=== PATIENT | female | born 1940 | race Caucasian/White ===

== ENCOUNTER 2019-01-25 12:12 | Observation (INO) ==
--- NOTE | 2019-01-25 12:51 | Emergency Department Note ---
Disposition Clinical Impression: Chest tightness Dyspnea Qualifiers: Dyspnea type: unspecified Qualified Code(s): R06.00 - Dyspnea, unspecified Heart failure Qualifiers: Heart failure type: unspecified Heart failure chronicity: unspecified Qualified Code(s): I50.9 - Heart failure, unspecified Disposition: Admitted As Inpatient Referrals: Lance Sapp DO [Primary Care Provider] - Forms: ED Satisfaction Letter General Adult HPI - General Chief complaint: ED Shortness of Breath/Dyspnea Stated complaint: BLE Swelling FINA Source: patient Mode of arrival: private vehicle Limitations: no limitations Nursing Notes Reviewed: Yes Vital Signs Reviewed: Yes - History of Present Illness HPI Narrative: 78-year-old female with past medical history including atrial fibrillation, aortic valve replacement, aneurysm repair in 2013, on Plavix, CAD with 1 stent placement in 2009, CKD, CHF, hypothyroidism, presenting with chief complaint of bilateral lower extremity swelling and dyspnea with exertion. Patient is presenting with intermittent episodes of bilateral lower extremity swelling for the past several months. For the past week, she complains of dyspnea with exertion. For the past 2 days, the patient now complains of shortness breath at rest. She denies chest pain, nausea, vomiting, abdominal pain, diarrhea, light headedness. She had a Holter monitor on 08/26/2017 that showed atrial fibrillation. Pain Scale: 0 - Related Data Allergies Allergy/AdvReac Type Severity Reaction Status Date / Time No Known Allergies Allergy Verified 01/25/19 12:32 Constitutional: Denies: fever, chills Cardiovascular: Reports: edema. Denies: chest pain, palpitations Respiratory: Reports: dyspnea. Denies: cough Gastrointestinal: Denies: abdominal pain, nausea, vomiting, diarrhea Genitourinary: Denies: dysuria Neurological: Denies: headache, weakness Past Medical History - Past Medical History Attestation: Yes The following information was validated with the patient. Source: patient Medical history: Reports: aortic aneurysm, CHF, coronary artery disease, other - Social History Smoking Status: Former smoker Alcohol use: Reports: none Drug use: Reports: none Physical Exam - General Limitations: no limitations General appearance: alert, in no apparent distress - Head Head exam: atraumatic, normocephalic - Eye Eye exam: Present: normal appearance, EOMI - ENT ENT exam: normal exam, normal oropharynx - Neck Neck exam: Present: normal inspection, trachea midline - Chest Chest inspection: Present: normal inspection, symmetric chest wall rise - Respiratory Respiratory exam: Present: other (Not hypoxic, no accessory muscle use. Diminished breath sounds bilaterally with crackles at the bases) - Cardiovascular Cardiovascular exam: Present: other (Irregular rhythm, tachycardic, bilateral radial pulses palpable and equal) - Abdominal Exam Abdominal exam: Present: soft, Non-Tender. Absent: distention - Extremities Exam Extremities exam: Present: other (2+ bilateral lower extremity pitting edema to the knee, bilateral dorsalis pedis pulses palpable and equal. Normal capillary refill, mild blanching erythema of the shins bilaterally) - Neurological Exam Neurological exam: Present: alert, oriented X3 - Psychiatric Psychiatric exam: Present: normal affect, normal mood - Skin Skin exam: Present: warm, dry. Absent: diaphoresis, pallor Course Vital Signs Temperature 98.1 F 01/25/19 12:30 Pulse Rate 108 01/25/19 12:30 Respiratory Rate 18 01/25/19 12:30 Blood Pressure 153/77 01/25/19 12:30 O2 Sat by Pulse Oximetry 96 01/25/19 12:30 Temperature 98.1 F 01/25/19 12:43 Pulse Rate 107 01/25/19 14:50 Respiratory Rate 20 01/25/19 14:50 Blood Pressure 157/88 01/25/19 14:50 O2 Sat by Pulse Oximetry 99 01/25/19 14:50 Oxygen Delivery Oxygen Delivery Room Air Medical Decision Making - [facility] Narrative Medical decision making narrative: Patient is presenting with worsening bilateral lower extremity swelling as well as shortness of breath initially with exertion, now at rest. She is not hypoxic. Bilateral crackles, diminished breath sounds. Not requiring supp lemental oxygen use at this time. Significant bilateral lower extremity swelling to the knee. She has no chest pain. She is in atrial fibrillation with heart rate 90s to low 100s. Suspect acute congestive heart failure. We will obtain CBC, BMP, troponin, BNP, chest x-ray. EKG shows atrial fibrillation with no acute ischemic changes. 14:15 Chest x-ray imaging results reviewed. She has borderline cardiomegaly with right-sided pleural effusion. Labs reviewed. Mild elevation of BNP. Troponin less than 0.03. No electrolyte abnormalities. Patient most likely has acute heart failure. She received 40 mg by mouth Lasix. The patient states he is still having some chest tightness and discomfort. She is feeling short of breath. We will page hospitalist for admission. D/w Dr. Pena, hospitalist, who accepts admission Chest X-Ray 01/25/19 12:22 IMPRESSION: Borderline cardiomegaly with trace right pleural effusion D/ / Bruno Garcia MD / Bruno Garcia MD Interpreting Provider: Bruno Garcia MD 1431 hrs.: Her labs look pretty good, she has had A. fib in the spell in the 90s up to the low 100s, and with her pitting edema and dyspnea she says she like to come into the hospital. That is reasonable. We will speak with hospitalist for admission and consult with cardiology as she sees them for her care. - Medical Records Medical records reviewed: Yes I reviewed the patient's medical records. - Lab Data Lab results reviewed: Yes I reviewed the patient's lab results. Result diagrams: 01/25/19 13:28 01/25/19 13:28 Lab Results 01/25/19 01/25/19 01/25/19 Range/Units 13:28 13:28 13:28 WBC 5.8 (4.3-11.1) K/mcL RBC 3.66 L (3.82-4.97) M/mcL Hgb 11.3 L (11.5-15.4) g/dL Hct 34.5 L (35.3-44.9) % MCV 94.3 (83.0-100.0) fL MCH 30.9 (28.0-33.3) pg MCHC 32.8 (31.6-35.5) g/dL RDW 13.8 (11.5-14.5) % Plt Count 165 (140-400) K/mcL MPV 9.2 L (9.4-12.4) fL Immature Gran % 0.3 (0-4) % Seg Neutrophils % 73.2 % Lymphocytes % 17.0 % Monocytes % 7.1 % Eosinophils % 2.1 % Basophils % 0.3 % Neutrophils # 4.2 (1.6-8.9) K/mcL Lymphocytes # 1.0 (0.6-4.6) K/mcL Monocytes # 0.4 (0.0-1.3) K/mcL Eosinophils # 0.1 (0.0-0.6) K/mcL Basophils # 0.0 (0.0-0.2) K/mcL PT (9.4-12.1) Seconds INR Sodium 139 (136-145) mEq/L Potassium 4.3 (3.5-5.1) mEq/L Chloride 107 (98-107) mEq/L Carbon Dioxide 27 (23-29) mEq/L BUN 17 (8-23) mg/dL Creatinine 0.95 (0.60-1.20) mg/dL Est GFR ( Amer) > 60 (> 60) Est GFR (Non-Af Amer) 57 L (> 60) BUN/Creatinine Ratio 18 (6-26) Glucose 94 (70-105) mg/dL Calculated Osmolality 289 (280-300) Calcium 9.6 (8.6-10.3) mg/dL Troponin I < 0.03 (< 0.04) ng/mL B-Natriuretic Peptide 159 H (Less than 100) pg/mL 01/25/19 Range/Units 13:28 WBC (4.3-11.1) K/mcL RBC (3.82-4.97) M/mcL Hgb (11.5-15.4) g/dL Hct (35.3-44.9) % MCV (83.0-100.0) fL MCH (28.0-33.3) pg MCHC (31.6-35.5) g/dL RDW (11.5-14.5) % Plt Count (140-400) K/mcL MPV (9.4-12.4) fL Immature Gran % (0-4) % Seg Neutrophils % % Lymphocytes % % Monocytes % % Eosinophils % % Basophils % % Neutrophils # (1.6-8.9) K/mcL Lymphocytes # (0.6-4.6) K/mcL Monocytes # (0.0-1.3) K/mcL Eosinophils # (0.0-0.6) K/mcL Basophils # (0.0-0.2) K/mcL PT 12.1 (9.4-12.1) Seconds INR 1.1 Sodium (136-145) mEq/L Potassium (3.5-5.1) mEq/L Chloride (98-107) mEq/L Carbon Dioxide (23-29) mEq/L BUN (8-23) mg/dL Creatinine (0.60-1.20) mg/dL Est GFR ( Amer) (> 60) Est GFR (Non-Af Amer) (> 60) BUN/Creatinine Ratio (6-26) Glucose (70-105) mg/dL Calculated Osmolality (280-300) Calcium (8.6-10.3) mg/dL Troponin I (< 0.04) ng/mL B-Natriuretic Peptide (Less than 100) pg/mL - Radiology Data Radiology results reviewed: Yes I reviewed the patient's radiology results. Chest X-Ray 01/25/19 12:22 IMPRESSION: Borderline cardiomegaly with trace right pleural effusion D/ / Bruno Garcia MD / Bruno Garcia MD Interpreting Provider: Bruno Garcia MD - EKG Data EKG #1 EKG attestation: Yes I reviewed and interpreted this EKG. EKG results narrative: EKG obtained at 1238 shows atrial fibrillation with heart rate 112. QRS dur ation 96, QTC 480. Left axis deviation. No ST elevation or depression. Compared to old EKG on 08/26/2017 which showed A. fib with heart rate 78. Attestation Statement - Attestation Attestation: This documentation is done with the assistance of Dragon dictation. Despite efforts made to ensure accuracy, there may be inaccuracies in bone cooking operator or spelling and typographical errors. I examined this patient and my medical decision-making was reviewed with the Resident Physician. I agree with the documented findings, disposition and treatment plan as described except to the extent set forth below. Patient was seen and evaluated today by myself and Dr. Walls, I agree with her evaluation and management plan, I supervised the care the patient's stay. Patient presents today with some dyspnea and leg swelling she says been going on last couple days. She does not think she has had heart failure before, she is not on a diuretic, she does take aspirin and Plavix she has had a aortic valve transplant, and has a history of A. fib which she has today. She does have pitting edema in her lower extremities 2+. Returning at labs on her start her on Lasix, reassess and most likely admission. She is in agreement with plan.
[2019-01-25] MEDS ORDERED: Furosemide 40 MG TABLET PO ONE (13:29)
[2019-01-25 13:42] LABS: Basophils % 0.3 %; Eosinophils # 0.1 K/mcL (0.0-0.6); Eosinophils % 2.1 %; Hematocrit 34.5 % (35.3-44.9); Hemoglobin 11.3 g/dL (11.5-15.4); Immature Granulocytes % 0.3 % (0-4); Mean Corpuscular HGB Conc 32.8 g/dL (31.6-35.5); Mean Corpuscular Hemoglobin 30.9 pg (28.0-33.3); Mean Corpuscular Volume 94.3 fL (83.0-100.0); Mean Platelet Volume 9.2 fL (9.4-12.4); Monocytes # 0.4 K/mcL (0.0-1.3); Monocytes % 7.1 %; Neutrophils # 4.2 K/mcL (1.6-8.9); Platelet Count 165 K/mcL (140-400); Red Blood Count 3.66 M/mcL (3.82-4.97); Red Cell Distribution Width 13.8 % (11.5-14.5); Segmented Neutrophils % 73.2 %
[2019-01-25 13:50] LABS: INR 1.1; Prothrombin Time 12.1 Seconds (9.4-12.1)
[2019-01-25 14:01] LABS: BUN/Creatinine Ratio 18 (6-26); Blood Urea Nitrogen 17 mg/dL (8-23); Calcium 9.6 mg/dL (8.6-10.3); Carbon Dioxide 27 mEq/L (23-29); Chloride 107 mEq/L (98-107); Glucose 94 mg/dL (70-105); Osmolality,Calculated 289 (280-300); Potassium 4.3 mEq/L (3.5-5.1); Sodium 139 mEq/L (136-145); Troponin I < 0.03 ng/mL (< 0.04); eGFR For Non-African Americans 57 (> 60)
--- NOTE | 2019-01-25 16:02 | Internal Med History&Physical ---
<Lance Lechuga - Last Filed: 01/25/19 16:52> Date of Encounter: 01/25/19 Time of Encounter: 16:02 Internal Medicine - H&P: HPI Chief complaint: Shortness of breath Admitted From: Emergency Dept Plans for Post Hospital Care: Home History of present illness: Ms. Ochoa is a 78 year old female with past medical history of HFpEF, CAD with stent in 2009, atrial fibrillation not on anticoagulation, CKD III, aortic bioprosthetic valve replacement, AAA repair who presented to the emergency department complaining of shortness of breath. She states that symptoms have been present for approximately 1 week but also states that she has had these symptoms off and on for many months. She states that her shortness of breath is exacerbated with movement and is now present at rest. Admits to associated sym ptoms of nonproductive cough, PND, lower extremity swelling but denies any orthopnea, fevers, chills, nausea, vomiting, chest pain. Denies any symptoms of urinary incontinence, frequency, urgency, dysuria as well as no changes in bowel movements. She is not having any rashes, numbness, tingling. She has experienced these symptoms previously when she had a CHF exacerbation. She is not home diuretic that she is aware of. She denies any anticoagulation except for aspirin and Plavix. She was previously on Coumadin following her prosthetic valve placement had multiple episodes of hematemesis and was this was discontinued in 2013. Her dispatch supervisor is Dr. Walters. She also does admit to some chest tightness which has been present for the past 4 days continuously and is not associated with exertion. She denies recent travel, sick contacts, palpitations. In the emergency room, vital signs are significant for heart rate of 108, blood pressure 153/77, she was tolerating 96% ox and on room air. Laboratory results show a mild anemia with hemoglobin 11.3, BNP was mildly elevated at 159 and troponin was negative. Chest x-ray showed borderline cardiomegaly with trace right pleural effusion. EKG was obtained in the emergency department shows atrial fibrillation with rapid ventricular response. No ST or T-wave changes to suggest ischemia. She was given 40 mg Lasix by mouth. Past medical history: As above Surgical history: Hysterectomy, cholecystectomy, aortic aneurysm repair, c ataracts Social history: Former smoker, quit in 1960s. Denies alcohol or drug use Past Med Surg Social Fam HX - Past Medical History Medical history: aortic aneurysm, CHF, coronary artery disease, other Additional medical history: CKD - Social History Smoking Status: Former smoker Alcohol use: none Drug use: none Internal Medicine - H&P: Meds Aspirin [Lo-Dose Aspirin EC] 81 mg PO DAILY 01/25/19 [History] Clopidogrel [Plavix] 75 mg PO DAILY 01/25/19 [History] Diltiazem HCl [Cardizem] 60 mg PO Q8H 01/25/19 [History] Escitalopram Oxalate 5 mg PO DAILY 01/25/19 [History] Ferrous Sulfate [Iron] 325 mg PO DAILY 01/25/19 [History] Levothyroxine [Synthroid] 75 mcg PO QAM 01/25/19 [History] Nitroglycerin [Nitrostat] 0.4 mg SL AD 01/25/19 [History] Propylene Glycol/Peg 400 [Systane 0.3-0.4% Eye Drops] 1 drop OP BID 01/25/19 [History] Simvastatin [Zocor] 20 mg PO QPM 01/25/19 [History] traZODone [TraZODone] 50 mg PO HS 01/25/19 [History] Allergy/AdvReac Type Severity Reaction Status Date / Time No Known Allergies Allergy Verified 01/25/19 12:32 All Systems PM: A 10-system review of systems was performed and is negative for pertinent findings except as documented above in the HPI. Review of systems: - Constitutional: Denies fevers, chills, weight loss, generalized fatigue - Head/Neck: Denies GARAY, neck stiffness - EENT: Denies vision changes/blurriness, rhinorrhea, congestion, sore throat, odynaphagia - CVS: Denies chest pain, palpitations, orthopnea. Admits to edema, PND, dyspnea on exertion - Pulm: Admits to shortness breath, cough. Denies sputum, hematemesis, wheezing - GI: Denies abdominal pain, anorexia, nausea, vomiting, diarrhea, constipation, melena - : Denies dysuria, increased frequency, urgency, hematuria, - Heme: Denies ease of bleeding or bruising - MSK: Denies joint pain, limited ROM - Skin: Denies rashes, ulcers, color changes, - Neuro: Denies GARAY, paresthesias, focal deficits, ataxia, - Constitutional Vitals: Temp Pulse Resp BP Pulse Ox 98.1 F 107 20 157/88 99 01/25/19 12:43 01/25/19 14:50 01/25/19 14:50 01/25/19 14:50 01/25/19 14:50 Exam: Gen.: Vitals noted. No acute distress. AAOx3, resting comfortably in bed. Pleasant HEENT: PERRL/EOMI, oropharynx clear, Normocephalic, atraumatic, MMM Neck: Supple. Previous thyroidectomy scar. No bruits. no JVD. mild hepatojugular reflex Cardiac: Irregularly irregular, mildly tachycardic, no murmur, +S1/S2, 2+ BLE edema Pulmonary: Right side and mild rhonchi, otherwise CTA bilaterally, no wheezes, rales or rhonchi, equal chest expansion, unlabored breathing Abdomen: soft, nontender, BS noted, no guarding, no palpable HSM, possible hernia in the epigastric region. Skin: warm and dry, no visible lesions. MSK: ROM intact, no joint swelling noted, gait no assessed while in bed. Non tender calf or clubbing Neuro: A&Ox3, moves all extremities, no focal deficits, sensation intact, cranial nerves grossly intact Psych: Appropriate mood and behavior, AOx3 Internal Med - H&P Results - Labs CBC & Chem 7: 01/25/19 13:28 01/25/19 13:28 Labs: Short CBC 01/25/19 Range/Units 13:28 WBC 5.8 (4.3-11.1) K/mcL Hgb 11.3 L (11.5-15.4) g/dL Hct 34.5 L (35.3-44.9) % Plt Count 165 (140-400) K/mcL Neutrophils # 4.2 (1.6-8.9) K/mcL BMP 01/25/19 13:28 Sodium 139 Potassium 4.3 Chloride 107 Carbon Dioxide 27 BUN 17 Creatinine 0.95 Glucose 94 Calcium 9.6 Cardiac Enzymes 01/25/19 Range/Units 13:28 Troponin I < 0.03 (< 0.04) ng/mL - Impressions ITS Impressions Chest X-Ray 01/25/19 12:22 IMPRESSION: Borderline cardiomegaly with trace right pleural effusion D/ / Bruno Garcia MD / Bruno Garcia MD Interpreting Provider: Bruno Garcia MD - Assessment and Plan (1) Congestive heart failure Current Visit: Yes Status: Suspected Assessment and plan: - Suspected symptoms are related to acute on chronic diastolic heart failure - Patient does admit to a history of heart failure but is unsure on type - Patient as follows [facility], echocardiogram ordered for September 2018 however no results available - Patient's clinical picture his next as her BNP and clinical symptoms to point to congestive heart failure, however chest x-ray did not show significant pulmonary congestion and she has no issues with orthopnea. - Alternative etiologies include valvular abnormalities, pulmonary hypertension - She reports no pulmonary disease - CXR shows trace pleural effusion. Plan - Strict I/os - Patient is diuretic naive, will start Lasix 40 mg IV daily - Echocardiogram ordered and pending - Cardiac diet Qualifiers: Heart failure type: diastolic Heart failure chronicity: acute on chronic Qualified Code(s): I50.33 - Acute on chronic diastolic (congestive) heart failure (2) Atrial fibrillation Current Visit: Yes Status: Acute Assessment and plan: - Patient with known history of persistent atrial fibrillation - Follows with [facility] - Not on anticoagulation. Has bioprosthetic valve as below - Currently mildly tachycardic, likely secondary to respiratory status - Confirmed by EKG - Patient reportedly previously on Rythmol, however did experience fatigue and rate control strategy was pursued due to inability to tolerate AC. - We will continue calcium channel subha Qualifiers: Atrial fibrillation type: persistent Qualified Code(s): I48.1 - Persistent atrial fibrillation (3) Dyspnea Current Visit: Yes Status: Acute Assessment and plan: As above Qualifiers: Dyspnea type: dyspnea on exertion Qualified Code(s): R06.09 - Other forms of dyspnea (4) CAD (coronary artery disease) Current Visit: Yes Status: Acute Assessment and plan: - Per patient history 1 stent placed in 2009 - We will continue aspirin, plavix, CCB - Troponin negative in ER, we will trend - EKG shows no signs of ischemia - We will continue monitor and continue home meds at this time Qualifiers: Coronary Disease-Associated Artery/Lesion type: [place] artery [place] vs. transplanted heart: [place] heart Associated angina: without angina Qualified Code(s): I25.10 - Atherosclerotic heart disease of [place] coronary artery without angina pectoris (5) H/O heart valve replacement with bioprosthetic valve Current Visit: Yes Status: Acute Assessment and plan: History of heart failure replacement in 2009 Patient reports outpatient failure of Coumadin after significant bleeding Continue aspirin, Plavix as recommended per dispatch supervisor (6) Chest tightness Current Visit: Yes Status: Acute Assessment and plan: Suspect this was related to patient's congestive heart failure History of CAD as above, however I do believe that this is more likely related to CHF We will treat underlying with diuresis as above and continue monitor (7) CKD (chronic kidney disease) Current Visit: Yes Status: Chronic Assessment and plan: - appears to be at baseline - Patient does not follow with nephro - Will monitor and avoid nephrotoxins Qualifiers: Chronic kidney disease stage: stage 3 (moderate) Qualified Code(s): N18.3 - Chronic kidney disease, stage 3 (moderate) (8) DVT prophylaxis Current Visit: Yes Status: Acute Assessment and plan: Subcutaneous heparin - Time Spent With Patient Total time spent is greater than 50% in coordination of care (as documented) at patient's floor/unit and/or counseling patient: <Chapis Burrell - Last Filed: 01/25/19 17:56> Date of Encounter: 01/25/19 Internal Medicine - H&P: HPI History of present illness: Ms. Ochoa is a 78 year old female Past Med Surg Social Fam HX - Family History Sister Living Status: Age at : 74 Cause of : cardiac Hx Family Cardiac Disorders: Yes (CABG) Hx Family Endocrine Disorder: Yes (DM) All Systems PM: A 10-system review of systems was performed and is negative for pertinent findings except as documented above in the HPI. - Constitutional Vitals: Temp Pulse Resp BP Pulse Ox 98.8 F 86 16 137/59 97 01/25/19 17:37 01/25/19 17:37 01/25/19 17:37 01/25/19 17:37 01/25/19 17:37 Internal Med - H&P Results - Labs CBC & Chem 7: 01/25/19 13:28 01/25/19 13:28 Labs: Short CBC 05/13/19 Range/Units 13:28 WBC 5.8 (4.3-11.1) K/mcL Hgb 11.3 L (11.5-15.4) g/dL Hct 34.5 L (35.3-44.9) % Plt Count 165 (140-400) K/mcL Neutrophils # 4.2 (1.6-8.9) K/mcL BMP 01/25/19 13:28 Sodium 139 Potassium 4.3 Chloride 107 Carbon Dioxide 27 BUN 17 Creatinine 0.95 Glucose 94 Calcium 9.6 Cardiac Enzymes 01/25/19 Range/Units 13:28 Troponin I < 0.03 (< 0.04) ng/mL - Impressions ITS Impressions Chest X-Ray 01/25/19 12:22 IMPRESSION: Borderline cardiomegaly with trace right pleural effusion D/ / Bruno Garcia MD / Bruno Garcia MD Interpreting Provider: Brnuo Garcia MD - Assessment and Plan (1) Dyspnea Current Visit: Yes Status: Acute Qualifiers: Dyspnea type: dyspnea on exertion Qualified Code(s): R06.09 - Other forms of dyspnea (2) Chest tightness Current Visit: Yes Status: Acute (3) Congestive heart failure Current Visit: Yes Status: Suspected Qualifiers: Heart failure type: diastolic Heart failure chronicity: acute on chronic Qualified Code(s): I50.33 - Acute on chronic diastolic (congestive) heart failure (4) CAD (coronary artery disease) Current Visit: Yes Status: Acute Qualifiers: Coronary Disease-Associated Artery/Lesion type: [place] artery [place] vs. transplanted heart: [place] heart Associated angina: without angina Qualified Code(s): I25.10 - Atherosclerotic heart disease of [place] coronary artery without angina pectoris (5) DVT prophylaxis Current Visit: Yes Status: Acute (6) H/O heart valve replacement with bioprosthetic valve Current Visit: Yes Status: Acute (7) Atrial fibrillation Current Visit: Yes Status: Acute Qualifiers: Atrial fibrillation type: persistent Qualified Code(s): I48.1 - Persistent atrial fibrillation (8) CKD (chronic kidney disease) Current Visit: Yes Status: Chronic Qualifiers: Chronic kidney disease stage: stage 3 (moderate) Qualified Code(s): N18.3 - Chronic kidney disease, stage 3 (moderate) - Time Spent With Patient Total time spent is greater than 50% in coordination of care (as documented) at patient's floor/unit and/or counseling patient: - Attending Attestation I examined this patient and my medical decision-making was reviewed with the Resident Physician. I agree with the documented findings, disposition and treatment plan as described except to the extent set forth below. Family history reviewed and non-contributory
[2019-01-25] MEDS ORDERED: Naloxone 0.4 MG/ML INJ IVP PRN (16:42)
[2019-01-25] MEDS ORDERED: Acetaminophen 325 MG TABLET PO PRN (16:42)
[2019-01-25] MEDS ORDERED: dilTIAZem HCl 60 MG TABLET PO SCH (16:45)
[2019-01-25] MEDS: *HR* Heparin 5,000 UNIT/ML VIAL SQ SCH (17:44)
[2019-01-25] MEDS: traZODone 50 MG TABLET PO SCH (22:35)
[2019-01-25] MEDS: dilTIAZem HCl 60 MG TABLET PO SCH (22:36)
[2019-01-26 01:55] LABS: Basophils % 0.3 %; Eosinophils # 0.2 K/mcL (0.0-0.6); Eosinophils % 3.3 %; Hematocrit 34.1 % (35.3-44.9); Hemoglobin 11.2 g/dL (11.5-15.4); Immature Granulocytes % 0.3 % (0-4); Lymphocytes # 1.2 K/mcL (0.6-4.6); Lymphocytes % 21.1 %; Mean Corpuscular HGB Conc 32.8 g/dL (31.6-35.5); Mean Corpuscular Hemoglobin 30.9 pg (28.0-33.3); Mean Corpuscular Volume 93.9 fL (83.0-100.0); Mean Platelet Volume 9.4 fL (9.4-12.4); Monocytes # 0.4 K/mcL (0.0-1.3); Monocytes % 7.5 %; Neutrophils # 3.9 K/mcL (1.6-8.9); Platelet Count 180 K/mcL (140-400); Red Blood Count 3.63 M/mcL (3.82-4.97); Red Cell Distribution Width 13.7 % (11.5-14.5); Segmented Neutrophils % 67.5 %
[2019-01-26 02:17] LABS: BUN/Creatinine Ratio 21 (6-26); Blood Urea Nitrogen 23 mg/dL (8-23); Calcium 9.2 mg/dL (8.6-10.3); Carbon Dioxide 26 mEq/L (23-29); Chloride 105 mEq/L (98-107); Chol/HDL Ratio 3.1 (0-4.9); Cholesterol 103 mg/dL (< 200); Glucose 123 mg/dL (70-105); HDL Cholesterol 33 mg/dL (40-59); LDL Cholesterol,Calculated 43 mg/dL (0-99); Osmolality,Calculated 297 (280-300); Potassium 3.8 mEq/L (3.5-5.1); Sodium 141 mEq/L (136-145); Triglycerides 133 mg/dL (< 150); Troponin I < 0.03 ng/mL (< 0.04); eGFR For Non-African Americans 48 (> 60)
--- NOTE | 2019-01-26 04:03 | Electrocardiograph Report ---
[place] [employer] Test Date: 2019-01-25 Pat Name: Therese Ochoa Department: [id number] Room: 3B54 Gender: F Heel Varnisher: : 1940 Requested By: Juan Carlos Mcgregor Order Number: [id number] Reading MD: Jason Chiu Measurements Intervals [place] Rate: 112 P: TX: QRS: -37 QRSD: 96 T: 99 QT: 351 QTc: 480 Interpretive Statements Atrial fibrillation Left axis deviation Electronically Signed On 01-26-2019 4:02:29 EDT by Jason Chiu
[2019-01-26] MEDS: *HR* Heparin 5,000 UNIT/ML VIAL SQ SCH ×2 (05:55→16:03)
[2019-01-26] MEDS: dilTIAZem HCl 60 MG TABLET PO SCH ×3 (08:18→22:59)
[2019-01-26] MEDS: Aspirin Enteric Coated 81 MG Tablet PO SCH (08:18)
[2019-01-26] MEDS ORDERED: Furosemide 40 MG/4 ML VIAL IVP SCH (09:00)
--- NOTE | 2019-01-26 16:19 | Internal Med Progress Note ---
<Karla Dickey - Last Filed: 01/26/19 16:29> Hospitalist Progress Note - Encounter Date of Encounter: 01/26/19 Time of Encounter: 16:15 - Subjective Interval History: Patient seen and examined at bedside today. She states she had worsening shortness of breath for the prior 3-4 days before presenting as well as increased edema in her lower extremities. She states that she has had a large improvement in her shortness of breath after receiving Lasix, she states that the swelling has improved but has not fully resolved. She denies nausea, vomiting, fever, chills, chest pain, palpitations, productive cough, pleuritic pain, abdominal pain, diarrhea, constipation, melena, hematochezia, dysuria, hematuria, calf pain. She denies orthopnea or PND. - Exam Vitals: Temp Pulse Resp BP Pulse Ox 98.3 F 80 18 136/61 96 01/26/19 15:01 01/26/19 15:01 01/26/19 15:01 01/26/19 15:01 01/26/19 15:01 Exam: Gen: Vitals noted. No acute distress. AAOx3, sitting up comfortably in bed HEENT: PERRL/EOMI, oropharynx clear, Normocephalic, atraumatic, MMM Cardiac: Regular rate, irregular rhythm, no murmur, +S1/S2, radial and dorsal pedis pulses 3+ and symmetrical, no JVD Pulmonary: Faint rhonchi at lung bases, no wheezes or rales, equal chest expansion Abdomen: soft, nontender, BS noted, no guarding, no rebound. MSK: ROM intact, no joint swelling noted Extremities: 1+ nonpitting edema to mid calves, mildly erythematous, no calf tenderness, no cyanosis or clubbing Neuro: A&Ox3, moves all extremities, no focal deficits Psych: Appropriate mood and behavior, pleasant - Assessment and Plan (1) Congestive heart failure Current Visit: Yes Status: Acute Assessment and Plan: Exacerbation of preserved ejection fraction heart failure Patient presented with increasing dyspnea as well as lower extremity edema Improved significantly following diuresis with Lasix Troponins negative 3 BNP 159 EKG significant for atrial fibrillation Chest x-ray significant for trace right pleural effusion as well as borderline cardiomegaly. Echocardiogram-LVEF 65%, indeterminate diastolic function, normal right ventricular structure and function, bilateral atrial enlargement, mild mitral regurgitation, mild tricuspid regurgitation, no pulmonary hypertension. Continue strict I and O's Continue diuresis with Lasix 40 mg (2) Dyspnea Current Visit: Yes Status: Acute Assessment and Plan: Suspect secondary to congestive heart failure Significantly improved after diuresis No supplemental oxygen requirement Respiratory support as needed (3) Atrial fibrillation Current Visit: Yes Status: Acute Assessment and Plan: History of atrial fibrillation EKG shows atrial fibrillation, left axis deviation, no ST segment elevation or depression Rate control with diltiazem Not on anticoagulation secondary to GI bleed in the past (4) CAD (coronary artery disease) Current Visit: Yes Status: Acute Assessment and Plan: History of coronary artery disease Stent placed in 2009 Continue aspirin, Plavix, diltiazem (5) H/O heart valve replacement with bioprosthetic valve Current Visit: Yes Status: Acute Assessment and Plan: Aortic valve replaced in 2009 Warfarin discontinued after significant GI bleeding Continue home medications aspirin, Plavix as recommended (6) CKD (chronic kidney disease) Current Visit: Yes Status: Chronic Assessment and Plan: Mild decrease in GFR, small increase in creatinine as well as BUN Continues to be at baseline renal function-CTD stage III Suspect secondary to Lasix dose Continue to renally dose medications and avoid nephrotoxic agents Continue to follow renal function closely as diuresis continues DVT Prophylaxis: Subcutaneous heparin - Time Spent with Patient Total time spent is greater than 50% in coordination of care (as documented) at patient's floor/unit and/or counseling patient: Internal Medicine: Result - Labs CBC & Chem 7: 01/26/19 01:08 01/26/19 01:08 Labs: Short CBC 01/26/19 Range/Units 01:08 WBC 5.8 (4.3-11.1) K/mcL Hgb 11.2 L (11.5-15.4) g/dL Hct 34.1 L (35.3-44.9) % Plt Count 180 (140-400) K/mcL Neutrophils # 3.9 (1.6-8.9) K/mcL BMP 01/26/19 01:08 Sodium 141 Potassium 3.8 Chloride 105 Carbon Dioxide 26 BUN 23 Creatinine 1.10 Glucose 123 H Calcium 9.2 Cardiac Enzymes 01/25/19 01/26/19 Range/Units 19:17 01:08 Troponin I < 0.03 < 0.03 (< 0.04) ng/mL - ABG Interpretation ABG results: PT/INR, D-dimer PT 12.1 Seconds (9.4-12.1) 01/25/19 13:28 - Impressions Impressions Echocardiogram 01/25/19 16:44 Impressions: LVEF 65%. Indeterminate diastolic function. Normal right ventricular structure and function. Biatrial enlargement. Mild mitral regurgitation. Mild tricuspid regurgitation. No pulmonary hypertension. Left Ventricular Wall Motion: Rest Echo Findings All wall segments showed normal motion. Findings: Study Quality * Technically adequate exam. ECG Findings * Atrial fibrillation. Left Ventricle * LVEF 65%. * Indeterminate diastolic function. * LV chamber size and wall thickness measurements are normal. Right Ventricle * Normal right ventricular structure and function. Left Atrium * Severely dilated left atrium. Right Atrium * Moderately dilated right atrium. Mitral Valve * Normal mitral valve structure. * No mitral stenosis. * Mild mitral regurgitation. Aortic Valve * No aortic regurgitation. * Aortic valve not well visualized. * No aortic stenosis. Tricuspid Valve * Tricuspid valve not well visualized. * Mild tricuspid regurgitation. * Estimated RA pressure is 8 mmHg. * Estimated RVSP is 32 mmHg. * No pulmonary hypertension. Pulmonic Valve * Pulmonic valve is not well visualized. * No pulmonic stenosis. * No pulmonic regurgitation. Pulmonary Artery * Pulmonary artery not well visualized. Aorta * Normally sized aortic root. * Proximal ascending thoracic aorta not well visualized. Pericardium * There is no pericardial effusion present. Interatrial Septum * No evidence of PFO by color Doppler. IVC * The IVC is not dilated. * < 50% respiratory change. ADDENDUM: 01/26/19 0958 Impressions: LVEF 65%. Indeterminate diastolic function. Normal right ventricular structure and function. Biatrial enlargement. Bioprosthetic aortic valve not well visualized. Normal function by Doppler. Mild mitral regurgitation. Mild tricuspid regurgitation. No pulmonary hypertension. Left Ventricular Wall Motion: Rest Echo Findings All wall segments showed normal motion. Findings: Study Quality * Technically adequate exam. ECG Findings * Atrial fibrillation. Left Ventricle * LVEF 65%. * Indeterminate diastolic function. * LV chamber size and wall thickness measurements are normal. Right Ventricle * Normal right ventricular structure and function. Left Atrium * Severely dilated left atrium. Right Atrium * Moderately dilated right atrium. Mitral Valve * Normal mitral valve structure. * No mitral stenosis. * Mild mitral regurgitation. Aortic Valve * No aortic regurgitation. * Aortic valve not well visualized. * No aortic stenosis. Tricuspid Valve * Tricuspid valve not well visualized. * Mild tricuspid regurgitation. * Estimated RA pressure is 8 mmHg. * Estimated RVSP is 32 mmHg. * No pulmonary hypertension. Pulmonic Valve * Pulmonic valve is not well visualized. * No pulmonic stenosis. * No pulmonic regurgitation. Pulmonary Artery * Pulmonary artery not well visualized. Aorta * Normally sized aortic root. * Proximal ascending thoracic aorta not well visualized. Pericardium * There is no pericardial effusion present. Interatrial Septum * No evidence of PFO by color Doppler. IVC * The IVC is not dilated. * < 50% respiratory change. Consult Discharge Plan - Plan Referrals: Lance Sapp, [Primary Care Provider] - 02/03/19 3:00 pm <Chapis Burrell - Last Filed: 01/26/19 18:01> Hospitalist Progress Note - Encounter Date of Encounter: 01/26/19 - Exam Vitals: Temp Pulse Resp BP Pulse Ox 98.3 F 80 18 136/61 96 01/26/19 15:01 01/26/19 15:01 01/26/19 15:01 01/26/19 15:01 01/26/19 15:01 - Assessment and Plan (1) Dyspnea Current Visit: Yes Status: Acute (2) Chest tightness Current Visit: Yes Status: Acute (3) Congestive heart failure Current Visit: Yes Status: Acute (4) CAD (coronary artery disease) Current Visit: Yes Status: Acute (5) DVT prophylaxis Current Visit: Yes Status: Acute (6) H/O heart valve replacement with bioprosthetic valve Current Visit: Yes Status: Acute (7) Atrial fibrillation Current Visit: Yes Status: Acute (8) CKD (chronic kidney disease) Current Visit: Yes Status: Chronic - Time Spent with Patient Total time spent is greater than 50% in coordination of care (as documented) at patient's floor/unit and/or counseling patient: Internal Medicine: Result - Labs CBC & Chem 7: 01/26/19 01:08 01/26/19 01:08 Labs: Short CBC 01/26/19 Range/Units 01:08 WBC 5.8 (4.3-11.1) K/mcL Hgb 11.2 L (11.5-15.4) g/dL Hct 34.1 L (35.3-44.9) % Plt Count 180 (140-400) K/mcL Neutrophils # 3.9 (1.6-8.9) K/mcL BMP 01/26/19 01:08 Sodium 141 Potassium 3.8 Chloride 105 Carbon Dioxide 26 BUN 23 Creatinine 1.10 Glucose 123 H Calcium 9.2 Cardiac Enzymes 01/25/19 01/26/19 Range/Units 19:17 01:08 Troponin I < 0.03 < 0.03 (< 0.04) ng/mL - ABG Interpretation ABG results: PT/INR, D-dimer PT 12.1 Seconds (9.4-12.1) 01/25/19 13:28 - Impressions Impressions Echocardiogram 01/25/19 16:44 Impressions: LVEF 65%. Indeterminate diastolic function. Normal right ventricular structure and function. Biatrial enlargement. Mild mitral regurgitation. Mild tricuspid regurgitation. No pulmonary hypertension. Left Ventricular Wall Motion: Rest Echo Findings All wall segments showed normal motion. Findings: Study Quality * Technically adequate exam. ECG Findings * Atrial fibrillation. Left Ventricle * LVEF 65%. * Indeterminate diastolic function. * LV chamber size and wall thickness measurements are normal. Right Ventricle * Normal right ventricular structure and function. Left Atrium * Severely dilated left atrium. Right Atrium * Moderately dilated right atrium. Mitral Valve * Normal mitral valve structure. * No mitral stenosis. * Mild mitral regurgitation. Aortic Valve * No aortic regurgitation. * Aortic valve not well visualized. * No aortic stenosis. Tricuspid Valve * Tricuspid valve not well visualized. * Mild tricuspid regurgitation. * Estimated RA pressure is 8 mmHg. * Estimated RVSP is 32 mmHg. * No pulmonary hypertension. Pulmonic Valve * Pulmonic valve is not well visualized. * No pulmonic stenosis. * No pulmonic regurgitation. Pulmonary Artery * Pulmonary artery not well visualized. Aorta * Normally sized aortic root. * Proximal ascending thoracic aorta not well visualized. Pericardium * There is no pericardial effusion present. Interatrial Septum * No evidence of PFO by color Doppler. IVC * The IVC is not dilated. * < 50% respiratory change. ADDENDUM: 01/26/19 0958 Impressions: LVEF 65%. Indeterminate diastolic function. Normal right ventricular structure and function. Biatrial enlargement. Bioprosthetic aortic valve not well visualized. Normal function by Doppler. Mild mitral regurgitation. Mild tricuspid regurgitation. No pulmonary hypertension. Left Ventricular Wall Motion: Rest Echo Findings All wall segments showed normal motion. Findings: Study Quality * Technically adequate exam. ECG Findings * Atrial fibrillation. Left Ventricle * LVEF 65%. * Indeterminate diastolic function. * LV chamber size and wall thickness measurements are normal. Right Ventricle * Normal right ventricular structure and function. Left Atrium * Severely dilated left atrium. Right Atrium * Moderately dilated right atrium. Mitral Valve * Normal mitral valve structure. * No mitral stenosis. * Mild mitral regurgitation. Aortic Valve * No aortic regurgitation. * Aortic valve not well visualized. * No aortic stenosis. Tricuspid Valve * Tricuspid valve not well visualized. * Mild tricuspid regurgitation. * Estimated RA pressure is 8 mmHg. * Estimated RVSP is 32 mmHg. * No pulmonary hypertension. Pulmonic Valve * Pulmonic valve is not well visualized. * No pulmonic stenosis. * No pulmonic regurgitation. Pulmonary Artery * Pulmonary artery not well visualized. Aorta * Normally sized aortic root. * Proximal ascending thoracic aorta not well visualized. Pericardium * There is no pericardial effusion present. Interatrial Septum * No evidence of PFO by color Doppler. IVC * The IVC is not dilated. * < 50% respiratory change. - Attending Attestation I examined this patient and my medical decision-making was reviewed with the Resident Physician. I agree with the documented findings, disposition and treatment plan as described except to the extent set forth below. <Karla Dickey - Last Filed: 01/26/19 16:29> (1) Congestive heart failure Qualifiers: Heart failure type: diastolic Heart failure chronicity: acute on chronic Qualified Code(s): I50.33 - Acute on chronic diastolic (congestive) heart failure (2) Dyspnea Qualifiers: Dyspnea type: dyspnea on exertion Qualified Code(s): R06.09 - Other forms of dyspnea (3) Atrial fibrillation Qualifiers: Atrial fibrillation type: persistent Qualified Code(s): I48.1 - Persistent atrial fibrillation (4) CAD (coronary artery disease) Qualifiers: Coronary Disease-Associated Artery/Lesion type: [place] artery [place] vs. transplanted heart: [place] heart Associated angina: without angina Qualified Code(s): I25.10 - Atherosclerotic heart disease of [place] coronary artery w ithout angina pectoris (6) CKD (chronic kidney disease) Qualifiers: Chronic kidney disease stage: stage 3 (moderate) Qualified Code(s): N18.3 - Chronic kidney disease, stage 3 (moderate) <Chapis Burrell - Last Filed: 01/26/19 18:01> (1) Dyspnea Qualifiers: Dyspnea type: dyspnea on exertion Qualified Code(s): R06.09 - Other forms of dyspnea (3) Congestive heart failure Qualifiers: Heart failure type: diastolic Heart failure chronicity: acute on chronic Qualified Code(s): I50.33 - Acute on chronic diastolic (congestive) heart failure (4) CAD (coronary artery disease) Qualifiers: Coronary Disease-Associated Artery/Lesion type: [place] artery [place] vs. transplanted heart: [place] heart Associated angina: without angina Qualified Code(s): I25.10 - Atherosclerotic heart disease of [place] coronary artery without angina pectoris (7) Atrial fibrillation Qualifiers: Atrial fibrillation type: persistent Qualified Code(s): I48.1 - Persistent atrial fibrillation (8) CKD (chronic kidney disease) Qualifiers: Chronic kidney disease stage: stage 3 (moderate) Qualified Code(s): N18.3 - Chronic kidney disease, stage 3 (moderate)
[2019-01-26] MEDS: traZODone 50 MG TABLET PO SCH (22:59)
[2019-01-27] MEDS: *HR* Heparin 5,000 UNIT/ML VIAL SQ SCH (05:36)
[2019-01-27 05:44] LABS: Basophils % 0.5 %; Eosinophils # 0.2 K/mcL (0.0-0.6); Eosinophils % 3.1 %; Hematocrit 34.9 % (35.3-44.9); Hemoglobin 11.3 g/dL (11.5-15.4); Immature Granulocytes % 0.3 % (0-4); Lymphocytes # 1.3 K/mcL (0.6-4.6); Lymphocytes % 22.5 %; Mean Corpuscular HGB Conc 32.4 g/dL (31.6-35.5); Mean Corpuscular Hemoglobin 30.5 pg (28.0-33.3); Mean Corpuscular Volume 94.1 fL (83.0-100.0); Mean Platelet Volume 9.3 fL (9.4-12.4); Monocytes # 0.5 K/mcL (0.0-1.3); Monocytes % 7.8 %; Neutrophils # 3.8 K/mcL (1.6-8.9); Platelet Count 169 K/mcL (140-400); Red Blood Count 3.71 M/mcL (3.82-4.97); Red Cell Distribution Width 13.8 % (11.5-14.5); Segmented Neutrophils % 65.8 %
[2019-01-27 06:04] LABS: Calcium 9.8 mg/dL (8.6-10.3); Potassium 3.9 mEq/L (3.5-5.1)
--- NOTE | 2019-01-27 09:10 | Discharge Summary ---
<Veronique Melissa - Last Filed: 01/27/19 15:39> - NOTES TO OUTPATIENT PROVIDER Notes to Outpatient Provider: would rec checking bun/creat in next week to assess kidney function on low dose lasix Date of Encounter: 01/27/19 - Discharge Diagnosis (1) Dyspnea Status: Resolved Qualifiers: Dyspnea type: dyspnea on exertion Qualified Code(s): R06.09 - Other forms of dyspnea (2) Chest tightness Status: Resolved (3) Congestive heart failure Status: Acute Qualifiers: Heart failure type: diastolic Heart failure chronicity: acute on chronic Qualified Code(s): I50.33 - Acute on chronic diastolic (congestive) heart failure (4) CAD (coronary artery disease) Status: Chronic Qualifiers: Coronary Disease-Associated Artery/Lesion type: [place] artery [place] vs. transplanted heart: [place] heart Associated angina: without angina Qualified Code(s): I25.10 - Atherosclerotic heart disease of [place] coronary artery without angina pectoris (5) DVT prophylaxis Status: Acute (6) H/O heart valve replacement with bioprosthetic valve Status: Acute (7) Atrial fibrillation Status: Chronic Qualifiers: Atrial fibrillation type: persistent Qualified Code(s): I48.1 - Persistent atrial fibrillation (8) CKD (chronic kidney disease) Status: Chronic Qualifiers: Chronic kidney disease stage: stage 3 (moderate) Qualified Code(s): N18.3 - Chronic kidney disease, stage 3 (moderate) Hospital course: Ms. Ochoa is a 78 year old female - Time Spent with Patient Total time spent providing and/or coordinating discharge services: Time spent: Greater than 30 minutes (40 min) - Discharge Medications Prescriptions: New Furosemide [Lasix] 20 mg PO DAILY #5 tablet Continued Aspirin [Lo-Dose Aspirin EC] 81 mg PO DAILY Clopidogrel [Plavix] 75 mg PO DAILY Diltiazem HCl [Cardizem] 60 mg PO Q8H Escitalopram Oxalate 5 mg PO DAILY Ferrous Sulfate [Iron] 325 mg PO DAILY Levothyroxine [Synthroid] 75 mcg PO QAM Nitroglycerin [Nitrostat] 0.4 mg SL AD Propylene Glycol/Peg 400 [Systane 0.3-0.4% Eye Drops] 1 drop OP BID Simvastatin [Zocor] 20 mg PO QPM traZODone [TraZODone] 50 mg PO HS Home Medications: Aspirin [Lo-Dose Aspirin EC] 81 mg PO DAILY 01/25/19 [History] Clopidogrel [Plavix] 75 mg PO DAILY 01/25/19 [History] Diltiazem HCl [Cardizem] 60 mg PO Q8H 01/25/19 [History] Escitalopram Oxalate 5 mg PO DAILY 01/25/19 [History] Ferrous Sulfate [Iron] 325 mg PO DAILY 01/25/19 [History] Levothyroxine [Synthroid] 75 mcg PO QAM 01/25/19 [History] Nitroglycerin [Nitrostat] 0.4 mg SL AD 01/25/19 [History] Propylene Glycol/Peg 400 [Systane 0.3-0.4% Eye Drops] 1 drop OP BID 01/25/19 [History] Simvastatin [Zocor] 20 mg PO QPM 01/25/19 [History] traZODone [TraZODone] 50 mg PO HS 01/25/19 [History] Furosemide [Lasix] 20 mg PO DAILY #5 tablet 01/27/19 [Rx] Allergies/Adverse Reactions: Allergy/AdvReac Type Severity Reaction Status Date / Time No Known Allergies Allergy Verified 01/25/19 12:32 Date of admission: 01/25/19 16:54 Primary care physician: Lance Sapp DO Consults: 01/26/19 13:41 Consult to Nurse Navigator [CONS] Routine Comment: CHF - Constitutional Vitals: Temp Pulse Resp BP Pulse Ox 98.3 F 124 18 118/70 94 01/27/19 11:11 01/27/19 11:11 01/27/19 11:11 01/27/19 11:11 01/27/19 11:11 - Patient Status Disposition: Home, Self-Care Condition: Good - Discharge Instructions Instructions: Furosemide (By mouth), Heart Failure (DC), Dyspnea (GEN) Follow Up With: Nam Kelly MD [Partnered Physician] - (Appointment has been requested. Our offices will call with an appointment time and date. If you do not hear from us, please call [phone]) Lance Sapp DO [Primary Care Provider] - 02/03/19 3:00 pm - Attending Attestation I examined this patient and my medical decision-making was reviewed with the Resident Physician Dr Lechuga. I agree with the documented findings, disposition and treatment plan as described except to the extent set forth below. Ms Ochoa was observed for mild CHF exacerbation. She has returned to near baseline and is medically stable for dc to home with cards and pcp follow up awake, very pleasant, no longer sob, no orthopnea, pnd or wheezing. denies cp, pressure, palpitations. le edema greatly improved. feet still swollen and tight. overall feeling much better. She notes she has known afib for which she takes asa + plavix and no AC due to being on AC in past and having significant bleeding so med was stopped. discussed dc plan and all questions answered. gen- alert, awake,appears stated age cv- reg rate and irreg/irreg rhythm, normal s1,s2, no murmurs appreciated, trace pitting edema to distal frank bl le, no jvd lungs- ctabl, no wheezing, rhonchi or crackles, normal resp effort on room air abd- soft, non tender, non distended, + bs neuro- AAOx3 Acute on Chronic Diastolic CHF, improved echo reviewed -cont [place], stat[place], and sent out on low dose PO lasix, pcp and cards fu on dc Hx afib, rate controlled- cont home asa, plavix, cardizem (no full ac as reported by pt above) CAD stable- meds as abvoe, fu with cards outpt Dyspnea 2/2 CHF exacerbation- resolved CKD stage III-low dose short term lasix on dc, fu with pcp, creat outpt further diagnoses and plan as noted by resident time spent on dc 40 min <Lance Lechuga - Last Filed: 01/27/19 17:18> - NOTES TO OUTPATIENT PROVIDER Notes to Outpatient Provider: Admitted with CHF exacerbation and was diuresed with lasix. Tolerated well. Will send home with short prescription of oral lasix to follow up with PCP and surveyor's assistant Date of Encounter: 01/27/19 Time of Encounter: 08:27 - Discharge Diagnosis (1) Dyspnea Priority: Secondary Status: Resolved Qualifiers: Dyspnea type: dyspnea on exertion Qualified Code(s): R06.09 - Other forms of dyspnea (2) Chest tightness Priority: Secondary Status: Resolved (3) Congestive heart failure Priority: Primary Status: Acute Qualifiers: Heart failure type: diastolic Heart failure chronicity: acute on chronic Qualified Code(s): I50.33 - Acute on chronic diastolic (congestive) heart failure (4) CAD (coronary artery disease) Priority: Secondary Status: Chronic Qualifiers: Coronary Disease-Associated Artery/Lesion type: [place] artery [place] vs. transplanted heart: [place] heart Associated angina: without angina Qualified Code(s): I25.10 - Atherosclerotic heart disease of [place] coronary artery without angina pectoris (5) DVT prophylaxis Priority: Secondary Status: Acute (6) H/O heart valve replacement with bioprosthetic valve Priority: Secondary Status: Acute (7) Atrial fibrillation Priority: Secondary Status: Chronic Qualifiers: Atrial fibrillation type: persistent Qualified Code(s): I48.1 - Persistent atrial fibrillation (8) CKD (chronic kidney disease) Priority: Secondary Status: Chronic Qualifiers: Chronic kidney disease stage: stage 3 (moderate) Qualified Code(s): N18.3 - Chronic kidney disease, stage 3 (moderate) Hospital course: Ms. Ochoa is a 78 year old female with past medical history of diastolic heart failure, CAD, atrial fibrillation, CKD stage III, aortic bioprosthetic valve replacement who presents emergency department with shortness of breath. Symp toms have been present for many months however have been worsening over the last week. Admits to dyspnea at rest as well as nonproductive cough and PND with lower extremity swelling. In the emergency department, vital signs are significant for heart rate of 108, and she was tolerating 98% oxygen on room air. Laboratory results show baseline anemia, BNP mildly elevated at 159 and negative troponin. Chest x-ray did show borderline cardiomegaly with trace right pleural effusion. EKG shows atrial fibrillation with RVR with no ischemic changes. She was admitted to the hospital for further evaluation and treatment of suspected CHF exacerbation. During course possible stay, patient did gradually improve. She was treated with IV Lasix with improvement of symptoms. She was also transient chest tightness however troponin was trended and remained negative. Her symptoms did improve with IV diuretics. She does follow with surveyor's assistant in will follow-up with him as an outpatient. On day of discharge, patient's symptoms had greatly improved and she is near her baseline. She will be discharged home in stable medical condition with a oral 20 mg Lasix dose for 5 days at which point she will follow up with both her primary care physician as well as surveyor's assistant for further recommendations. All questions were answered. Labs and her vitals return to baseline levels Discharge discussed with: patient, nurse, social work, case management - Time Spent with Patient Total time spent providing and/or coordinating discharge services: Date of admission: 01/25/19 16:54 Primary care physician: Lance Sapp, DO Consults: 01/26/19 13:41 Consult to Nurse Navigator [CONS] Routine Comment: CHF Discharging clinician: Lance Lechuga Anticipated date of discharge: 01/27/19 - Constitutional Vitals: Temp Pulse Resp BP Pulse Ox 98.1 F 82 18 135/69 95 01/27/19 07:02 01/27/19 07:02 01/27/19 07:02 01/27/19 07:02 01/27/19 07:02 Exam: Gen: Vitals noted. No acute distress. AAOx3, sitting up comfortably in bed HEENT: PERRL/EOMI, oropharynx clear, Normocephalic, atraumatic, MMM Cardiac: Regular rate, irregular rhythm, no murmur, +S1/S2, no JVD Pulmonary: Faint rhonchi at right lung base, no wheezes or rales, equal chest expansion Abdomen: soft, nontender, BS noted, no guarding, no rebound. MSK: ROM intact, no joint swelling noted Extremities: 1+ nonpitting edema to mid calves, mildly erythematous, no calf tenderness, no cyanosis or clubbing Neuro: A&Ox3, moves all extremities, no focal deficits Psych: Appropriate mood and behavior, pleasant - Patient Status Functional capacity at discharge: independent ambulation Overall status at discharge: patient is progressing back to baseline - Diet and Activity Activity: increase activity as tolerated, return to work once cleared by your PCP/specialist, resume usual activities as tolerated Diet: advance to your usual diet, low salt diet
[2019-01-27] MEDS: dilTIAZem HCl 60 MG TABLET PO SCH (09:44)
[2019-01-27] MEDS: Aspirin Enteric Coated 81 MG Tablet PO SCH (09:45)
[2019-01-27 11:14] VITALS: BP 118/70
== END 2019-01-27 16:06 | disposition home or self-care (01) ==
LOC: EMEROOARM 12:12 → 3BNU 12:12 → SUATTDRO 16:54 → 3BNU 17:14
PROVIDERS: ADMIT Student in an Organized Health Care Education/Training Program; ATTEND Internal Medicine